=== PATIENT | female | born 1980 | race Caucasian/White ===

== ENCOUNTER 2017-01-05 17:13 | Emergency (ER) | payer MEDICAID ==
[~2017-01-05] VITALS: Ht 154.9 cm; Wt 59.0 kg
[2017-01-05] MEDS ORDERED: KETOROLAC TROMETHAMINE 30 MG/ML VIAL IM ONE (20:45)
[2017-01-05] MEDS ORDERED: PROMETHAZINE HCL 25 MG/ML VIAL IM ONE (20:45)
[2017-01-05 21:22] VITALS: BP 127/89
== END 2017-01-05 21:23 | disposition home or self-care (01) ==
LOC: EMS 17:17
DX: S13.9XXA Sprain of joints and ligaments of unspecified parts of neck, initial encounter (principal); V49.88XA Car occupant (driver) (passenger) injured in other specified transport accidents, initial encounter; Y93.89 Activity, other specified; Y92.89 Other specified places as the place of occurrence of the external cause; Y99.8 Other external cause status
CPT/HCPCS: 72125; 96372; 99284; J1885; J2550